=== PATIENT | female | born 1965 | race American Indian/Alaskan Native ===

== ENCOUNTER 2016-11-05 10:36 | Emergency (ER) | payer OTHER ==
[2016-11-05 11:34] LABS: Basophils % (Auto) 0.6 % (0.0-1.8); Eosinophils % (Auto) 0.5 % (0.0-4.3); Hemoglobin 13.9 gm/dl (10.1-14.3); Mean Corpuscular HGB Conc 32 % (30-34); Mean Corpuscular Hemoglobin 27 pg (28-32); Mean Corpuscular Volume 84 fl (79-97); Platelet Count 180 K/mm3 (140-440); Red Blood Count 5.13 M/mm3 (3.65-5.03); Red Cell Distribution Width 13.8 % (13.2-15.2); White Blood Count 9.5 K/mm3 (4.5-11.0)
[2016-11-05 11:47] LABS: Anion Gap 21 mmol/L; B-Hydroxybutyrate 14.5 mg/dL (0.2-2.8); BUN/Creatinine Ratio 22.85; Blood Urea Nitrogen 16 mg/dL (7-17); Calcium 9.8 mg/dL (8.4-10.2); Carbon Dioxide 25 mmol/L (22-30); Chloride 96.4 mmol/L (98-107); Glucose 317 mg/dL (65-100); Potassium 4.3 mmol/L (3.6-5.0); Sodium 138 mmol/L (137-145)
[2016-11-05 12:03] LABS: Bilirubin,Urine NEG (Negative); Blood,Urine SM (Negative); Ketones,Urine 20 mg/dL (Negative); Leukocyte Esterase,Urine NEG (Negative); Mucus,Urine FEW /HPF; Nitrite,Urine NEG (Negative); Protein,Urine <15 mg/dL mg/dL (Negative); Urobilinogen,Urine < 2.0 mg/dL (<2.0)
[2016-11-05] MEDS ORDERED: NACL 0.9% 1000 ML IV ONE (12:06)
[2016-11-05 15:11] VITALS: BP 115/64
--- NOTE | 2016-11-05 15:25 | Emergency Department Report ---
HPI - General Chief Complaint: Nausea/Vomiting/Diarrhea Time Seen by Provider: 11/05/16 12:01 - HPI HPI: Chief complaint: Nausea and vomiting HPI: Patient is a 51-year-old female with a history of insulin-dependent diabetes who states she came to work this morning and had a very episodes of vomiting. Patient had a normal bowel movement yesterday and has had no diarrhea. Patient is a 2 and a tubal ligation. Patient has not taken her medications this morning but she has not eaten either. No fever cough cold chest pain or headache. No abdominal pain. Mode of arrival: private car Source: Patient Began: Prior to admission Duration: Patient already feels better Context: See above Quality: Pain-free Severity: 0 out of 10 Improved with: Nothing Worsened with: Nothing Associated signs and symptoms: See above ED Past Medical Hx - Past Medical History Hx Diabetes: Yes - Surgical History Additional Surgical History: c-sect x 2, tubal - Social History Smoking Status: Never Smoker Substance Use Type: None - Medications Home Medications: Home Medications Medication Instructions Recorded Confirmed Last Taken Type Canagliflozin [Invokana] 300 mg PO QAM 11/05/16 11/05/16 Unknown History Insulin Glargine [Lantus] 32 units SQ QHS 11/05/16 11/05/16 Unknown History ED Review of Systems ROS: Stated complaint: NAUSEA/VOMITING Other details as noted in HPI ROS Constitutional: No fever ENT: No uri symptoms Cardiovascular: No chest pain Respiratory: No sob or cough GI: No diarrhea : No dysuria frequency or urgency, Skin: No rash Neuro: No focal weakness or numbness Psych: No depression Irwin/lymph: No edema Physical Exam - Physical Exam Vital Signs: Vital Signs 11/05/16 11/05/16 11/05/16 10:50 11:33 15:10 Temperature 97.8 F Pulse Rate 87 74 Respiratory 18 18 16 Rate Blood Pressure 149/91 Blood Pressure 115/64 [Left] O2 Sat by Pulse 98 98 Oximetry Physical Exam: GENERAL: The patient is well-developed well-nourished . HEENT: Normocephalic. Atraumatic. Extraocular motions are intact. Patient has moist mucous membranes. NECK: Supple. No meningitic signs are noted. There is no adenopathy noted. CHEST/LUNGS: Clear to auscultation. There is no respiratory distress noted. HEART/CARDIOVASCULAR: Regular. There is no tachycardia. There is no gallop rub or murmur. ABDOMEN: Abdomen is soft, nontender. Patient has normal bowel sounds. There is no abdominal distention. SKIN: There is no rash. There is no edema. There is no diaphoresis. NEURO: The patient is awake, alert, and oriented. The patient is cooperative. The patient has no focal neurologic deficits. The patient has normal speech. MUSCULOSKELETAL: There is no tenderness or deformity. There is no limitation range of motion. There is no evidence of acute injury. ED Course Vital Signs 11/05/16 11/05/16 11/05/16 10:50 11:33 15:10 Temperature 97.8 F Pulse Rate 87 74 Respiratory 18 18 16 Rate Blood Pressure 149/91 Blood Pressure 115/64 [Left] O2 Sat by Pulse 98 98 Oximetry - Reevaluation(s) Reevaluation #1: 11/05/16 Patient given 2 L normal saline and 5 units of regular insulin with significant improvement. ED Medical Decision Making - Lab Data Result diagrams: 11/05/16 11:14 11/05/16 11:14 Laboratory Tests 11/05/16 11/05/16 11/05/16 11:14 11:14 15:01 VBG pH 7.339 POC Glucose 127 H Ketones 14.5 H Critical care attestation.: If time is entered above; I have spent that time in minutes in the direct care of this critically ill patient, excluding procedure time. ED Disposition Clinical Impression: Hyperglycemia Nausea and vomiting Qualifiers: Vomiting type: unspecified Vomiting Intractability: non-intractable Qualified Code(s): R11.2 - Nausea with vomiting, unspecified Disposition: DISCHARGED TO HOME OR SELFCARE Is pt being admited?: No Does the pt Need Aspirin: No Condition: Stable Instructions: Diabetic Hyperglycemia (ED), Acute Nausea and Vomiting (ED) Referrals: follow-up, your primary care doctor [Other] - 3-5 Days Time of Disposition: 15:19
== END 2016-11-05 15:31 | disposition home or self-care (01) ==
LOC: ED 10:36
DX: E11.65 Type 2 diabetes mellitus with hyperglycemia (principal); R11.2 Nausea with vomiting, unspecified; Z98.51 Tubal ligation status; Z98.890 Other specified postprocedural states; Z79.4 Long term (current) use of insulin; Z79.899 Other long term (current) drug therapy
CPT/HCPCS: 36415; 80048; 81001; 82010; 82805; 82962; 85025; 96374; 99284; J7030; J1815